=== PATIENT | male | born 1980 | race Caucasian/White ===

== ENCOUNTER 2020-12-18 05:19 | Inpatient (IN) | payer MEDICAID ==
[~2020-12-18] VITALS: Ht 190.5 cm; Wt 107.7 kg
[2020-12-18] MEDS ORDERED: NAPROSYN500 MG PO (05:23)
[2020-12-18] MEDS ORDERED: OMEPRAZOLE40 MG PO (05:23)
[2020-12-18 11:06] VITALS: BP 113/78
--- NOTE | 2020-12-18 13:36 | NUR ---
PT TO ROOM FROM ER, GUARD IN ROOM AT BEDSIDE. PT IN SHACKLES. FOOD TRAY IN ROOM. COMPLAINS OF PAIN 4/10 TO ABDOMEN. IV INFUSING VIA PIV.
[2020-12-18 14:06] VITALS: BP 120/64; Ht 190.5 cm; Wt 107.7 kg
[2020-12-18 16:00] VITALS: BP 130/82
[2020-12-18 19:27] LABS: EOSINOPHILS 9.1 % (0-7); HEMATOCRIT 43.8 % (42.0-54.0); HEMOGLOBIN 15.1 g/dL (13.5-17.5); IMMATURE GRANULOCYTES 0.2 % (0-5); LYMPHOCYTE ABS# 0.85 10x3/uL (1.32-3.57); LYMPHOCYTES 20.9 % (15-50); MCH 32.5 pg (26.0-34.0); MCHC 34.5 g/dL (31.0-37.0); MCV 94.4 fL (80.0-100.0); MEAN PLATELET VOLUME 10.9 fL (7.4-10.4); NEUTROPHIL ABS# 2.31 10x3/uL (1.78-5.38); NEUTROPHILS 56.8 % (40-80); PLATELET COUNT 148 10x3/uL (130-400); RBC 4.64 10x6/uL (4.20-6.10); RDW 13.2 % (11.5-14.5); WBC 4.1 10x3/uL (4.8-10.8)
[2020-12-18 19:36] LABS: APTT 39.3 SECONDS (22.8-39.4); INR 1.43 (0.85-1.17); PROTIME 16.2 SECONDS (11.6-15.0)
--- NOTE | 2020-12-18 19:43 | NUR ---
REPORT RECIEVED AND INITIAL ROUNDS COMPLETED. PT RESTING. NO DISTRESS. CALL LIGHT IN REACH.
[2020-12-18 20:03] LABS: ALBUMIN 2.8 g/dL (3.4-5.0); ALKALINE PHOSPHATASE 194 U/L (30-120); ALT (SGPT) 2752 U/L (10-68); CALC OSMOLALITY 277 mosm/kg (275-300); CALCIUM 8.4 mg/dL (8.5-10.1); CARBON DIOXIDE 26.5 mmol/L (21.0-32.0); CHLORIDE - SERUM 106 mmol/L (98-107); CKMB 0.7 U/L (0.0-3.6); CREATINE KINASE 29 UL (21-232); CREATININE - SERUM 0.7 mg/dL (0.6-1.3); GLUCOSE 99 mg/dL (74-106); LIPASE 67 U/L (73-393); MAGNESIUM - SERUM 1.9 mg/dL (1.8-2.4); POTASSIUM - SERUM 4.2 mmol/L (3.5-5.1); PROTEIN - SERUM 6.6 g/dL (6.4-8.2); SODIUM 140 mmol/L (136-145); TROPONIN-I < 0.017 ng/mL (0.000-0.060); UREA NITROGEN 10 mg/dL (7-18); eGFR NON AFRICAN AMERICAN > 90 mL/min (90-120)
[2020-12-18 21:31] VITALS: BP 117/74
[2020-12-19 01:11] VITALS: BP 113/66
--- NOTE | 2020-12-19 01:28 | NUR ---
RESTING WITH EYES CLOSED. GUARD AT BEDSIDE. IVF NS @ 50ML/HR INFUSING. NPO FOR AM PIPIDA TO BE PERFORMED.
[2020-12-19 05:19] VITALS: BP 116/72
[2020-12-19 07:30] VITALS: BP 114/75
--- NOTE | 2020-12-19 07:37 | NUR ---
INITIAL ROUNDS PT RESTING COMFORTABLY IN BED, A/O X4, RESP EVEN AND NONLABORED ON RA. NUCLEAR MED FIXING TO COME GET PT FOR PIPIDA SCAN. DISCONNECTED PT FROM IV FLUIDS, SL RT HAND IV. PT RATES PAIN LEVEL OF 6/10 TO RIGHT SIDE OF ABD, UNABLE TO GIVE PT ANYTHING FOR PAIN AT THIS TIME. PT DENIES ANY OTHER NEEDS AT THIS TIME. CALL LIGHT IN REACH, WILL CONTINUE PLAN OF CARE.
[2020-12-19 10:10] LABS: HEPATITIS C ANTIBODY <0.1 S/CO RAT (0.0-0.9)
[2020-12-19 11:11] LABS: BASOPHILS 0.7 % (0-2); EOSINOPHILS 8.9 % (0-7); HEMATOCRIT 45.7 % (42.0-54.0); HEMOGLOBIN 15.5 g/dL (13.5-17.5); IMMATURE GRANULOCYTES 0.2 % (0-5); LYMPHOCYTE ABS# 0.88 10x3/uL (1.32-3.57); LYMPHOCYTES 20.5 % (15-50); MCH 32.2 pg (26.0-34.0); MCHC 33.9 g/dL (31.0-37.0); MCV 94.8 fL (80.0-100.0); MEAN PLATELET VOLUME 11.1 fL (7.4-10.4); MONOCYTES 11.4 % (2-11); NEUTROPHILS 58.3 % (40-80); PLATELET COUNT 152 10x3/uL (130-400); RBC 4.82 10x6/uL (4.20-6.10); RDW 13.1 % (11.5-14.5); WBC 4.3 10x3/uL (4.8-10.8)
[2020-12-19 11:30] VITALS: BP 112/65
[2020-12-19 11:32] LABS: ALBUMIN 2.7 g/dL (3.4-5.0); ALKALINE PHOSPHATASE 203 U/L (30-120); BILIRUBIN - TOTAL 6.67 mg/dL (0.2-1.3); CALCIUM 8.5 mg/dL (8.5-10.1); CARBON DIOXIDE 28.3 mmol/L (21.0-32.0); CHLORIDE - SERUM 104 mmol/L (98-107); CREATININE - SERUM 0.7 mg/dL (0.6-1.3); GLUCOSE 82 mg/dL (74-106); MAGNESIUM - SERUM 1.7 mg/dL (1.8-2.4); POTASSIUM - SERUM 4.3 mmol/L (3.5-5.1); PROTEIN - SERUM 6.6 g/dL (6.4-8.2); SODIUM 139 mmol/L (136-145); eGFR NON AFRICAN AMERICAN > 90 mL/min (90-120)
[2020-12-19 11:50] LABS: ALT (SGPT) 2258 U/L (10-68); CALC OSMOLALITY 274 mosm/kg (275-300); UREA NITROGEN 7 mg/dL (7-18)
[2020-12-19 12:38] LABS: BILIRUBIN 1+ (NEGATIVE); KETONE NEGATIVE (NEGATIVE); NITRITE NEGATIVE (NEGATIVE)
[2020-12-19 12:52] LABS: UDS - AMPHET NEGATIVE QUAL (NEGATIVE); UDS - BARB NEGATIVE QUAL (NEGATIVE); UDS - BENZO NEGATIVE QUAL (NEGATIVE); UDS - COCAINE NEGATIVE QUAL (NEGATIVE); UDS - OPIATE POSITIVE QUAL (NEGATIVE); UDS - PCP NEGATIVE QUAL (NEGATIVE); UDS - THC NEGATIVE QUAL (NEGATIVE)
[2020-12-19 15:30] VITALS: BP 129/74
--- NOTE | 2020-12-19 16:50 | NUR ---
PT RESTING COMFORTABLY IN BED, DENIES ANY NEEDS AT THIS TIME. CALL LIGHT IN REACH, DIRECTOR OF DEVELOPMENT AT BEDSIDE.
[2020-12-19 21:07] VITALS: BP 109/68
--- NOTE | 2020-12-19 21:15 | NUR ---
PT RESTING IN BED WATCHING TV, GUARD AT BEDSIDE. RR EVEN AND UNLABORED. NO S/S OF DISTRESS OBSERVED. C/O OF ABD DISCOMFORT. CL IN REACH.
[2020-12-20 01:23] VITALS: BP 106/96
[2020-12-20 05:07] VITALS: BP 110/68
[2020-12-20 06:15] LABS: BASOPHILS 0.7 % (0-2); EOSINOPHILS 9.6 % (0-7); HEMATOCRIT 44.3 % (42.0-54.0); IMMATURE GRANULOCYTES 0.2 % (0-5); LYMPHOCYTE ABS# 0.96 10x3/uL (1.32-3.57); MCH 32.2 pg (26.0-34.0); MCHC 33.9 g/dL (31.0-37.0); MCV 95.1 fL (80.0-100.0); MEAN PLATELET VOLUME 10.9 fL (7.4-10.4); MONOCYTES 10.5 % (2-11); NEUTROPHIL ABS# 2.49 10x3/uL (1.78-5.38); PLATELET COUNT 160 10x3/uL (130-400); RBC 4.66 10x6/uL (4.20-6.10); RDW 13.4 % (11.5-14.5); WBC 4.4 10x3/uL (4.8-10.8)
[2020-12-20 06:56] LABS: ALBUMIN 2.6 g/dL (3.4-5.0); ALKALINE PHOSPHATASE 217 U/L (30-120); BILIRUBIN - TOTAL 7.23 mg/dL (0.2-1.3); CALCIUM 8.3 mg/dL (8.5-10.1); CARBON DIOXIDE 28.7 mmol/L (21.0-32.0); CHLORIDE - SERUM 103 mmol/L (98-107); CREATININE - SERUM 0.7 mg/dL (0.6-1.3); GLUCOSE 85 mg/dL (74-106); MAGNESIUM - SERUM 1.8 mg/dL (1.8-2.4); POTASSIUM - SERUM 4.2 mmol/L (3.5-5.1); PROTEIN - SERUM 6.1 g/dL (6.4-8.2); SODIUM 138 mmol/L (136-145); eGFR NON AFRICAN AMERICAN > 90 mL/min (90-120)
--- NOTE | 2020-12-20 07:00 | NUR ---
RECEIVED REPORT. ASSUMED CARE OF PATIENT. RESTING WELL WITH EYES OPEN, RESP EVEN AND UNLABORED. NO DISTRESS. DENIES ANY ABD PAIN. GAURD AT BEDSIDE. CALL LIGHT WITHIN REACH. WHITE BOARD UPDATED, BEDSIDE SHIFT REPORT COMPLETE.
[2020-12-20 07:20] LABS: ALT (SGPT) 1684 U/L (10-68); CALC OSMOLALITY 273 mosm/kg (275-300); UREA NITROGEN 9 mg/dL (7-18)
[2020-12-20 08:07] VITALS: BP 124/81
--- NOTE | 2020-12-20 09:30 | NUR ---
OFF UNIT VIA WHEELCHAIR TO MRI OF ABD. NO DISTRESS.
[2020-12-20 12:02] VITALS: BP 117/71
[2020-12-20 15:18] VITALS: BP 113/68
[2020-12-20 20:00] VITALS: BP 109/62
[2020-12-21] VITALS: BP 118/76
[2020-12-21 04:00] VITALS: BP 115/65
[2020-12-21 06:28] LABS: BASOPHILS 0.9 % (0-2); EOSINOPHILS 9.9 % (0-7); HEMATOCRIT 43.8 % (42.0-54.0); HEMOGLOBIN 14.9 g/dL (13.5-17.5); LYMPHOCYTE ABS# 1.07 10x3/uL (1.32-3.57); LYMPHOCYTES 25.2 % (15-50); MCH 32.5 pg (26.0-34.0); MCV 95.6 fL (80.0-100.0); MONOCYTES 11.5 % (2-11); NEUTROPHIL ABS# 2.23 10x3/uL (1.78-5.38); NEUTROPHILS 52.5 % (40-80); PLATELET COUNT 173 10x3/uL (130-400); RBC 4.58 10x6/uL (4.20-6.10); RDW 13.4 % (11.5-14.5); WBC 4.3 10x3/uL (4.8-10.8)
[2020-12-21 07:08] LABS: ALBUMIN 2.6 g/dL (3.4-5.0); ALKALINE PHOSPHATASE 251 U/L (30-120); BILIRUBIN - TOTAL 6.19 mg/dL (0.2-1.3); CALC OSMOLALITY 273 mosm/kg (275-300); CALCIUM 8.2 mg/dL (8.5-10.1); CARBON DIOXIDE 28.3 mmol/L (21.0-32.0); CHLORIDE - SERUM 104 mmol/L (98-107); CREATININE - SERUM 0.8 mg/dL (0.6-1.3); GLUCOSE 96 mg/dL (74-106); MAGNESIUM - SERUM 1.7 mg/dL (1.8-2.4); POTASSIUM - SERUM 3.9 mmol/L (3.5-5.1); PROTEIN - SERUM 6.3 g/dL (6.4-8.2); SODIUM 138 mmol/L (136-145); UREA NITROGEN 8 mg/dL (7-18); eGFR NON AFRICAN AMERICAN > 90 mL/min (90-120)
[2020-12-21 07:09] LABS: ALT (SGPT) 1216 U/L (10-68)
--- NOTE | 2020-12-21 07:15 | NUR ---
INITIAL ROUNDS- PT RESTING COMFORTABLY IN BED, WATCHING TV. PT A/O X4, RESP EVEN AND NONLABORED ON RA. SR-60 ON TELE. RT HAND INFUSING NS AT 50CC/HR. PT DENIES ANY PAIN AT THIS TIME. BUT STILL FEELS NAUSEATED, PT HAD ZOFRAN AROUND 0530. PT DENIES ANY NEEDS AT THIS TIME. PROTOTYPE SEWER AT BEDSIDE, CALL LIGHT IN REACH, WILL CONTINUE PLAN OF CARE.
[2020-12-21 08:00] VITALS: BP 127/81
--- NOTE | 2020-12-21 09:22 | NUR ---
4MG OF MORPHINE GIVEN FOR PAIN LEVEL OF 9/10, ALSO GAVE 4MG OF ZOFRAN. PT DENIES ANY OTHER NEEDS, CALL LIGHT IN REACH.
[2020-12-21 11:00] VITALS: BP 127/72
[2020-12-21 11:20] LABS: INR 1.17 (0.85-1.17); PROTIME 13.8 SECONDS (11.6-15.0)
--- NOTE | 2020-12-21 18:09 | NUR ---
4MG OF MORPHINE GIVEN FOR PAIN LEVEL OF 7/10, ALSO GAVE 4MG OF ZOFRAN. ALL NEEDS MET, GUARD AT BEDSIDE, CALL LIGHT IN REACH.
--- NOTE | 2020-12-21 20:29 | NUR ---
RECIEVED UP IN BED WITH LEGS SHACKLED TO BED AND GAURD AT BEDSIDE. ALERT AND ORIENTED. UP AD JOSE DAVID TO B/R. IV TO RT HAND WITH NS AT 50CC/HR. TELEMETRY IN PLACE. REFUSES SCD'S.
[2020-12-21 21:59] VITALS: BP 123/80
[2020-12-22 01:20] VITALS: BP 115/73
[2020-12-22 05:20] VITALS: BP 102/66
[2020-12-22 06:02] LABS: BASOPHILS 0.7 % (0-2); EOSINOPHILS 11.5 % (0-7); HEMATOCRIT 45.2 % (42.0-54.0); HEMOGLOBIN 15.5 g/dL (13.5-17.5); IMMATURE GRANULOCYTES 0.4 % (0-5); LYMPHOCYTE ABS# 1.17 10x3/uL (1.32-3.57); LYMPHOCYTES 21.7 % (15-50); MCH 32.6 pg (26.0-34.0); MCHC 34.3 g/dL (31.0-37.0); MCV 95.2 fL (80.0-100.0); MEAN PLATELET VOLUME 11.1 fL (7.4-10.4); NEUTROPHIL ABS# 2.94 10x3/uL (1.78-5.38); NEUTROPHILS 54.7 % (40-80); PLATELET COUNT 180 10x3/uL (130-400); RBC 4.75 10x6/uL (4.20-6.10); RDW 13.4 % (11.5-14.5)
[2020-12-22 06:07] LABS: WBC 5.4 10x3/uL (4.8-10.8)
[2020-12-22 06:21] LABS: INR 1.13 (0.85-1.17); PROTIME 13.5 SECONDS (11.6-15.0)
[2020-12-22 06:31] LABS: ALBUMIN 2.6 g/dL (3.4-5.0); ALKALINE PHOSPHATASE 292 U/L (30-120); ALT (SGPT) 923 U/L (10-68); BILIRUBIN - TOTAL 5.32 mg/dL (0.2-1.3); CALC OSMOLALITY 269 mosm/kg (275-300); CALCIUM 8.6 mg/dL (8.5-10.1); CARBON DIOXIDE 29.4 mmol/L (21.0-32.0); CHLORIDE - SERUM 101 mmol/L (98-107); CREATININE - SERUM 0.8 mg/dL (0.6-1.3); GLUCOSE 96 mg/dL (74-106); MAGNESIUM - SERUM 1.9 mg/dL (1.8-2.4); POTASSIUM - SERUM 4.2 mmol/L (3.5-5.1); PROTEIN - SERUM 6.9 g/dL (6.4-8.2); SODIUM 136 mmol/L (136-145); UREA NITROGEN 7 mg/dL (7-18); eGFR NON AFRICAN AMERICAN > 90 mL/min (90-120)
[2020-12-22 08:00] VITALS: BP 100/67
[2020-12-22 11:00] VITALS: BP 100/68
[2020-12-22] MEDS ORDERED: CHRONULAC30 ML PO (12:21)
--- NOTE | 2020-12-22 14:23 | NUR ---
DISCHARGE INSTRUCTIONS PROVIDED TO PATIENT. PATIENT VERBALIZED UNDERSTANDING. PACKET HANDED TO OFFICER. REPORT CALLED TO LENO LOCKHART AT [facility]. OFFICER WAITING FOR STATEMENT DISTRIBUTION CLERK WITH TRANSPORT. IV REMOVED.
== END 2020-12-22 15:08 | DRG 443 ==
LOC: D.ER 05:19 → D.M2 10:48
PROVIDERS: Emergency Medicine; Family Medicine; ADMIT Family Medicine; ATTEND Family Medicine
DX: B15.9 Hepatitis A without hepatic coma (principal); K21.9 Gastro-esophageal reflux disease without esophagitis; E80.6 Other disorders of bilirubin metabolism; R74.01 Elevation of levels of liver transaminase levels; Z87.891 Personal history of nicotine dependence